=== PATIENT | female | born 1945 | race African-American/Black ===

== ENCOUNTER 2016-11-07 11:00 | Observation (INO) | payer OTHER ==
[2016-11-07 11:05] VITALS: TEMP 98.4; BMI 31.4
--- NOTE | 2016-11-07 11:47 | PDOC ---
History of Present Illness <Vinod Sun - Last Filed: 11/07/16 14:25> - General History Source: Patient Exam Limitations: No Limitations - History of Present Illness Initial Comments: 11/07/16 12:56 The patient is a 71 year old female with a significant past medical history of DM and HTN who was sent to the ED s/p mechanical fall since this AM. She states that she was running after her grandson as she stripped and fell forward impacting her right side of the body. Patient reports right sided rib discomfort , right hand pain and right knee pain. She denies any LOC or head trauma. She notes that she feels a twitching sensation at the right side of the chest/rib area. Patient notes that she was seen by Dr. Castellon today that sent her to [facility] for abnormal ECG. She denies any vision changes, lightheadedness, chest pain, SOB or headache. PCP: Dr. Castellon <Roxy Stewart - Last Filed: 11/07/16 15:20> - General Chief Complaint: Chest Pain Stated Complaint: FALL, CHEST PAIN Time Seen by Provider: 11/07/16 11:24 Past History - Past Medical History Diabetes: Yes HTN: Yes - Psycho/Social/Smoking Cessation Hx Suicidal Ideation: No Smoking History: Never smoked Hx Alcohol Use: No Drug/Substance Use Hx: No Substance Use Type: None <Vinod Sun - Last Filed: 11/07/16 14:25> <Roxy Stewart - Last Filed: 11/07/16 15:20> - Past Medical History Allergies/Adverse Reactions: Allergies Allergy/AdvReac Type Severity Reaction Status Date / Time aspirin AdvReac Verified 08/02/15 09:51 Home Medications: Ambulatory Orders Amlodipine Besylate 10 mg PO DAILY 11/07/16 Metformin HCl [Metformin HCl ER] 1,000 mg PO DAILY 11/07/16 Review of Systems - Review of Systems Constitutional: No: Chills, Fever Respiratory: No: Cough, Shortness of Breath Cardiac (ROS): No: Chest Pain, Edema Musculoskeletal: Yes: Joint Pain, Muscle Pain All Other Systems: Reviewed and Negative <Vinod Sun - Last Filed: 11/07/16 14:25> *Physical Exam - Vital Signs Last Vital Signs Temp Pulse Resp BP Pulse Ox 98.4 F 91 H 20 204/107 96 11/07/16 11:01 11/07/16 11:01 11/07/16 11:01 11/07/16 11:01 11/07/16 11:01 <Karl Sunfaele - Last Filed: 11/07/16 14:25> - Vital Signs Last Vital Signs Temp Pulse Resp BP Pulse Ox 98.4 F 85 18 180/83 96 11/07/16 11:01 11/07/16 12:03 11/07/16 11:47 11/07/16 11:47 11/07/16 12:03 - Physical Exam Comments: 11/07/16 12:57 GENERAL: Patient is alert and in no acute distress. Speech is clear and appropriate. HEAD: Atraumatic and nontender. HEENT: Pupils are equal round and reactive to light, extraocular movements are intact. The tympanic membranes are clear, no hemotympanum. No facial deformity/ tenderness, no septal hematoma. The oropharynx is clear. NECK: The trachea is midline, there is no stridor. There is no midline cervical spine tenderness, full range of motion of neck. CHEST: +Anterior rib 5, 6 and 7 tenderness, no notable swelling crepitus or bruising. no ecchymosis or abrasions. HEART: S1-S2, regular rate and rhythm. No murmurs. LUNGS: Clear to auscultation bilaterally. Symmetric chest rise. ABDOMEN: Soft/nontender/nondistended. Bowel sounds are normal. There is no abdominal or flank ecchymosis. BACK/PELVIS: There is no midline spine tenderness or step-off. Pelvis is stable and nontender. EXTREMITIES: +Extensor mechanism intact. There is no extremity deformity or joint swelling. No focal bony tenderness or deformity in the remaining joints or extremities. Throughout. 2+ distal pulses throughout. NEURO: Alert and oriented x3. Cranial nerves II through XII are intact. 5 out of 5 motor strength x4 extremities. Anlyde-qxtn-lwdahx is intact. No pronator drift. SKIN: +Superficial abrasion to the right palm x2 and thumb no focal bony deformity full ROM of joints, +Right knee no abrasions, No hematomas/ lacerations. PSYCH: Affect is appropriate. <Roxy Stewart - Last Filed: 11/07/16 15:20> Heart Score/ECG Review #1 ECG reviewed & interpreted by me at: 11:11 General ECG Interpretation: Sinus Rhythm, Normal Rate (89), Normal Intervals, No acute ischemic changes (T wave Inversions in 1 and aVL, V5 and V6. No acute ST changes.) Compared to previous ECG there are: Changes noted (compared to 07/19, V5-6 TWI are new) <Vinod Sun - Last Filed: 11/07/16 14:25> ED Treatment Course - LABORATORY CBC & Chemistry Diagram: 11/07/16 11:49 11/07/16 11:49 <Vinod Sun - Last Filed: 11/07/16 14:25> - LABORATORY CBC & Chemistry Diagram: 11/07/16 11:49 11/07/16 11:49 - ADDITIONAL ORDERS Additional order review: Laboratory Results 11/07/16 11/07/16 11:49 11:48 INR 0.98 Sodium 139 Potassium 5.0 Chloride 103 Carbon Dioxide 26 Anion Gap 10 BUN 14 D Creatinine 0.8 Creat Clearance w eGFR > 60 Random Glucose 348 H* D Calcium 8.5 Magnesium 1.7 L Total Bilirubin 0.3 D AST 26 D ALT 27 D Alkaline Phosphatase 78 Creatine Kinase 145 Troponin I < 0.02 Total Protein 7.0 Albumin 3.4 11/07/16 11:49 RBC 4.26 MCV 89.0 MCHC 32.1 RDW 13.6 MPV 9.7 Neutrophils % 66.5 D Lymphocytes % 23.4 D Monocytes % 7.7 Eosinophils % 1.6 Basophils % 0.8 - RADIOLOGY Radiology Studies Ordered: 11/07/16 14:27 EXAM: RAD/RIBS RIGHT SIDE Chest and right RIBS: Fall. Pain. An AP view the chest reveals clear lungs, sharp angles and intact bones and soft tissues. The mediastinum is not widened. Detailed views of the right ribs reveal no sign of blastic or lytic changes and no sign of fracture. A pneumothorax, pleural fluid or atelectasis is not seen. If symptoms persist, further imaging may be of help. Impression : No acute pathology appreciated. Reported By: Camilo Ramos MD 11/07/16 <Roxy Stewart - Last Filed: 11/07/16 15:20> Medical Decision Making - Medical Decision Making 11/07/16 12:52 A portion of this note was documented by scribe services under my direction. I have reviewed the details of the note, within reason, and agree with the documentation with the following case summary and management plan written by me. 71-year-old female with history of hypertension sent from Dr. Castellon's office for further evaluation in the setting of having EKG abnormalities in the setting of fall. Patient was in her usual state of health, tripped while running after her grandson and struck her right hand, right knee, and right chest on the ground. There was no head injury or loss of consciousness, she presented to him for evaluation of her injuries, and when EKG was performed there were new T wave inversions in the precordial leads so she was sent to the ED. She has no other cardiopulmonary complaints, explaining only positional right-sided rib discomfort. Vital signs normal. Exam as noted with abrasions to the right hand but no underlying bony deformity , no evidence of trauma or tenderness of the right knee, but some anterior right rib tenderness without crepitus or signs of pneumothorax. 71-year-old female with mechanical trip and fall, right-sided injury without head injury. Rule out rib fracture, at least has rib contusions. Rule out pneumothorax. Hand abrasions without evidence of underlying fracture. The fall was clearly mechanical, not in the setting of any lightheadedness or cardiopulmonary complaints. Expect that EKG changes are more likely subacute or chronic, will check labs and discuss disposition with Dr. Castellon. Labs, urinalysis Right rib series Reassess 11/07/16 14:23 Labs normal except for hyperglycemia, trop negative. CXR without fx/ptx. Accepted for obs tele by Dr. Castellon, requests consult with Dr. Hernandez. <Vinod Sun - Last Filed: 11/07/16 14:25> *DC/Admit/Observation/Transfer - Discharge Dispostion Admit: Yes <Vinod Sun - Last Filed: 11/07/16 14:25> - Attestations Scribe Attestion: 11/07/16 12:59 Documentation prepared by SARI Pate, acting as medical coding specialist for Vinod Sun MD. <Roxy Stewart - Last Filed: 11/07/16 15:20> Diagnosis at time of Disposition: EKG abnormalities Accidental fall Qualifiers: Encounter type: initial encounter Qualified Code(s): W19.XXXA - Unspecified fall, initial encounter Contusion of rib on right side Qualifiers: Encounter type: initial encounter Qualified Code(s): S20.211A - Contusion of right front wall of thorax, initial encounter - Referrals
[2016-11-07 12:22] LABS: BASOPHIL 0.8 % (0-2.0); EOSINOPHIL 1.6 % (0-4.5); MCH 28.6 pg (25.7-33.7); MCHC 32.1 g/dl (32.0-36.0); MEAN PLT VOLUME 9.7 fl (7.5-11.1); NEUTROPHILS 66.5 % (42.8-82.8); PLATELET COUNT 273 K/MM3 (134-434); RDW 13.6 % (11.6-15.6); WHITE BLOOD COUNT 9.8 K/mm3 (4.0-10.0)
[2016-11-07 12:38] LABS: INR 0.98 (0.82-1.09); PROTHROMBIN TIME (PATIENT) 10.8 SEC (9.98-11.88)
[2016-11-07 12:45] LABS: ALBUMIN 3.4 g/dl (3.4-5.0); ANION GAP 10 (8-16); BILIRUBIN,TOTAL 0.3 mg/dL (0.2-1.0); CALCIUM 8.5 mg/dL (8.5-10.1); CO2 26 mmol/L (21-32); CREATININE 0.8 mg/dL (0.55-1.02); SGPT/ALT 27 U/L (12-78)
[2016-11-07 12:47] LABS: ALK PHOS 78 U/L (45-117); TROPONIN I < 0.02 ng/ml (0.00-0.05)
[2016-11-07 12:49] LABS: MAGNESIUM 1.7 mg/dL (1.8-2.4); SGOT/AST 26 U/L (15-37)
[2016-11-07 12:55] LABS: GLUCOSE,RANDOM 348 mg/dL (74-106)
[2016-11-07] MEDS ORDERED: traMADol HCL 50 MG TABLET PO ONE (12:55)
[2016-11-07] MEDS ORDERED: traMADol HCL 50 MG TABLET ONE (13:02)
--- NOTE | 2016-11-07 13:27 | EKG ---
Test Reason : Blood Pressure : / mmHG Vent. Rate : 089 BPM Atrial Rate : 089 BPM P-R Int : 158 ms QRS Dur : 084 ms QT Int : 370 ms P-R-T Axes : 042 017 160 degrees QTc Int : 450 ms NORMAL SINUS RHYTHM MINIMAL VOLTAGE CRITERIA FOR LVH, MAY BE NORMAL VARIANT T WAVE ABNORMALITY, CONSIDER LATERAL ISCHEMIA ABNORMAL ECG WHEN COMPARED WITH ECG OF 06-JUL-2015 18:20, T WAVE INVERSION NOW EVIDENT IN LATERAL LEADS Confirmed by JORGE HOLDEN MD ([id number]) on 11/07/2016 1:27:18 PM Referred By: Confirmed By:JORGE HOLDEN MD
--- NOTE | 2016-11-07 15:44 | CON.CARD ---
Consult Consult Specialty:: Cardiology Referred by:: Dr. Castellon Reason for Consultation:: Chest pain post fall, ECG abnormalities - History of Present Illness Chief Complaint: Right sided chest pain after falling on chest earlier History of Present Illness: 71 yo female with HTN, DM type 2, who presents to ED after falling earlier this morning when she grabbed her grandson who was trying to run off and she subsequently fell on the right side of her chest with resulting right sided chest pain with palpation. Denies syncope. Patient was sent to ED by her PMD ( Dr. Castellon) for ECG abnormalities per ECG today compared to prior ECG in 2015. ECG demonstrated LVH with T wave abnormalities in I, aVL, and V5-6, which were new compared to prior 2015 ECG. Patient denies any exertional chest pain or dyspnea. Patient's BP was noted to be elevated in ED with SBP 180, but patient was also in pain from the fall. - History Source History Provided By: Patient Limitations to Obtaining History: No Limitations - Past Medical History Cardio/Vascular: Yes: HTN Musculoskeletal: Yes: Other (Left shoulder pain due to old rotator cuff injury?) Endocrine: Yes: Diabetes Mellitus - Past Surgical History Past Surgical History: Yes: None - Alcohol/Substance Use Hx Alcohol Use: No History of Substance Use: reports: None - Smoking History Smoking history: Never smoked Home Medications - Allergies Allergies/Adverse Reactions: Allergies Allergy/AdvReac Type Severity Reaction Status Date / Time aspirin AdvReac Verified 08/02/15 09:51 - Home Medications Home Medications: Ambulatory Orders Amlodipine Besylate 10 mg PO DAILY 11/07/16 Metformin HCl [Metformin HCl ER] 1,000 mg PO DAILY 11/07/16 Family Disease History - Family Disease History Family History: Denies (premature CAD or sudden cardiac ) Review of Systems - Review of Systems Constitutional: reports: No Symptoms Eyes: reports: No Symptoms HENT: reports: No Symptoms Vital Signs: Vital Signs Temperature 98.4 F 11/07/16 11:01 Pulse Rate 85 11/07/16 12:03 Respiratory Rate 18 11/07/16 11:47 Blood Pressure 180/83 11/07/16 11:47 O2 Sat by Pulse Oximetry (%) 96 11/07/16 12:03 - Other Data Labs, Other Data: INR, PTT INR 0.98 (0.82-1.09) 11/07/16 11:48 Imaging - Results X-ray: Report Reviewed (11/07/16 Ribs x-ray: No fractures, effusions.), Image Reviewed Assessment/Plan 71 yo female with HTN, DM type 2, who presents to ED after mechanical fall earlier this morning. Patient sent to ED with ECG abnormalities compared to prior ECG from 2015. ECG demonstrated LVH with T wave abnormalities in I, aVL, and V5-6. However, these T wave abnormalities are likely due to LVH. No suggestion per history to suggest ischemic heart disease. Right sided chest pain is clearly musculoskeletal. No clinical suspicion for ACS. No fractures per rib x-rays. Patient was noted to have elevated BP with SBP 180 in the ED, but patient was also in pain from the fall. RECS: In my opinion, patient does not require any further inpatient cardiac evaluation. If patient has not had an echocardiogram in the past year, would recommend outpatient echocardiogram. No need for stress testing at this time given absence of symptoms to suggest ischemic heart disease. Will continue patient's amlodipine 10 mg po daily. Will add ramipril 5 mg po daily to regimen for better BP control and uptitrate as needed. Will defer decision to admit patient for observation to primary care physician ( Dr. Castellon). However, patient can be discharged from cardiac standpoint with close outpatient BP follow-up. Please call with questions. Will see prn.
[2016-11-07] MEDS ORDERED: RAMIPRIL 5 MG CAPSULE (FP) PO SCH ×2 (15:45→17:30)
[2016-11-07] MEDS ORDERED: RAMIPRIL 5 MG CAPSULE (FP) ONE (15:56)
--- NOTE | 2016-11-07 17:26 | HP ---
Admitting History and Physical - Primary Care Physician PCP: Agus Castellon - Admission Chief Complaint: ekg changes at office/fall History of Present Illness: The patient is a 71 year old female with a significant past medical history of DM and HTN who was sent to the ED s/p mechanical fall since this AM. She states that she was running after her grandson as she stripped and fell forward impacting her right side of the body. Patient reports right sided rib discomfort , right hand pain and right knee pain. She denies any LOC or head trauma. She notes that she feels a twitching sensation at the right side of the chest/rib area. Patient notes that she was seen by Dr. Castellon today that sent her to [facility] for abnormal ECG. She denies any vision changes, lightheadedness, chest pain, SOB or headache. History Source: Patient Limitations to Obtaining History: No Limitations - Past Medical History Cardiovascular: Yes: HTN Musculoskeletal: Yes: Other (Left shoulder pain due to old rotator cuff injury?) Endocrine: Yes: Diabetes Mellitus - Past Surgical History Past Surgical History: Yes: None - Smoking History Smoking history: Never smoked - Alcohol/Substance Use Hx Alcohol Use: No History of Substance Use: reports: None Home Medications - Allergies Allergies/Adverse Reactions: Allergies Allergy/AdvReac Type Severity Reaction Status Date / Time aspirin AdvReac Verified 08/02/15 09:51 - Home Medications Home Medications: Ambulatory Orders Amlodipine Besylate 10 mg PO DAILY 11/07/16 Metformin HCl [Metformin HCl ER] 1,000 mg PO DAILY 11/07/16 Review of Systems - Review of Systems Constitutional: reports: No Symptoms Eyes: reports: No Symptoms HENT: reports: No Symptoms Neck: reports: No Symptoms Cardiovascular: reports: No Symptoms Respiratory: reports: No Symptoms Gastrointestinal: reports: No Symptoms Genitourinary: reports: No Symptoms Musculoskeletal: reports: Joint Pain Integumentary: reports: Rash, Wound Neurological: reports: No Symptoms Endocrine: reports: No Symptoms Physical Examination Vital Signs: Vital Signs Temperature 98.4 F 11/07/16 11:01 Pulse Rate 85 11/07/16 12:03 Respiratory Rate 18 11/07/16 11:47 Blood Pressure 180/83 11/07/16 11:47 O2 Sat by Pulse Oximetry (%) 96 11/07/16 12:03 Constitutional: Yes: Mild Distress Eyes: Yes: WNL HENT: Yes: WNL Neck: Yes: WNL Cardiovascular: Yes: Pulse Irregular Respiratory: Yes: WNL Gastrointestinal: Yes: WNL Renal/: Yes: WNL Musculoskeletal: Yes: WNL Edema: No Peripheral Pulses WNL: Yes Integumentary: Yes: WNL Neurological: Yes: WNL ...Motor Strength: WNL Psychiatric: Yes: WNL Problem List - Problems (1) Accidental fall Code(s): W19.XXXA - UNSPECIFIED FALL, INITIAL ENCOUNTER Qualifiers: Encounter type: initial encounter Qualified Code(s): W19.XXXA - Unspecified fall, initial encounter (2) Contusion of rib on right side Code(s): S20.211A - CONTUSION OF RIGHT FRONT WALL OF THORAX, INITIAL ENCOUNTER Qualifiers: Encounter type: initial encounter Qualified Code(s): S20.211A - Contusion of right front wall of thorax, initial encounter (3) EKG abnormalities Code(s): R94.31 - ABNORMAL ELECTROCARDIOGRAM [ECG] [EKG] (4) Hypertension Code(s): I10 - ESSENTIAL (PRIMARY) HYPERTENSION Qualifiers: Hypertension type: essential hypertension Qualified Code(s): I10 - Essential (primary) hypertension Assessment/Plan cardiology eval xrays ribs telemetery monitoring observation
--- NOTE | 2016-11-07 17:30 | DS ---
Physical Examination Vital Signs: Vital Signs Temperature 98.4 F 11/07/16 11:01 Pulse Rate 85 11/07/16 12:03 Respiratory Rate 18 11/07/16 11:47 Blood Pressure 180/83 11/07/16 11:47 O2 Sat by Pulse Oximetry (%) 96 11/07/16 12:03 Findings/Remarks: see hnp Constitutional: Yes: No Distress Discharge Summary Reason For Visit: ABNORMAL EKG Current Active Problems Accidental fall (Acute) Contusion of rib on right side (Acute) EKG abnormalities (Acute) Procedures: Principal: XRAYS Other Procedures: CARDIAC MONITORING Hospital Course: ADMITEED OBSERVATION/CARDIAC F/U, XRAYS NEG, MEDICALLY CLEARED BY CARDIOLOGY, F/ U OUTPATIENT Condition: Good - Instructions Diet, Activity, Other Instructions: ADA/LOW SODIUM Referrals: Agus Castellon MD [Primary Care Provider] - Disposition: HOME - Home Medications Comprehensive Discharge Medication List: Ambulatory Orders Amlodipine Besylate 10 mg PO DAILY 11/07/16 Amlodipine Besylate [Norvasc -] 10 mg PO DAILY #0 tablet 11/07/16 Metformin HCl [Metformin HCl ER] 1,000 mg PO DAILY 11/07/16 Ramipril [Altace] 5 mg PO DAILY #30 tab 11/07/16
[2016-11-07] MEDS ORDERED: BACITRACIN 0.9 GM PACKET ONE (17:48)
[2016-11-07 18:00] VITALS: BP 175/65; PULSE 75
[2016-11-08] MEDS ORDERED: amLODIPine BESYLATE 10 MG TABLET (FP) PO SCH (10:00)
== END 2016-11-07 18:03 | disposition home or self-care (01) ==
LOC: JER 11:00 → JERBED 14:26
PROVIDERS: ADMIT Family Medicine; ATTEND Family Medicine
DX: R94.31 Abnormal electrocardiogram [ECG] [EKG] (principal); S20.211A Contusion of right front wall of thorax, initial encounter; S60.511A Abrasion of right hand, initial encounter; W01.0XXA Fall on same level from slipping, tripping and stumbling without subsequent striking against object, initial encounter; Y93.02 Activity, running; Y92.89 Other specified places as the place of occurrence of the external cause; I10 Essential (primary) hypertension; E11.9 Type 2 diabetes mellitus without complications
CPT/HCPCS: 36415; 71101-TC-RT; 80053; 82550; 83735; 84484; 85025; 85610; 86850; 86900; 86901; 93005; 93010; 99285-25; G0378

== ENCOUNTER 2023-04-08 16:38 | Inpatient (IN) | payer OTHER ==
[2023-04-08] MEDS ORDERED: ONDANSETRON 4 MG/2 ML VIAL IM ONE (17:47)
[2023-04-08] MEDS ORDERED: SODIUM CHLORIDE 0.9% 500 ML INFUS.BAG IV ONE (17:47)
[2023-04-08] MEDS ORDERED: FAMOTIDINE 20 MG/50 ML IVPB 20 MG/50 ML MG IVPB ONE ×2 (17:47→18:07)
[2023-04-08] MEDS ORDERED: ACETAMINOPHEN 1000 MG/100 ML BAG IVPB ONE (17:47)
[2023-04-08 18:09] LABS: BASO % 0.7 % (0-2.0); EOS % 1.5 % (0-4.5); HEMATOCRIT 35.6 % (32.4-45.2); HEMOGLOBIN 11.3 GM/dL (10.7-15.3); LYMPH % 9.3 % (8-40); MCH 26.5 pg (25.7-33.7); MCHC 31.9 g/dl (32.0-36.0); MEAN PLT VOLUME 8.8 fl (7.5-11.1); MONO % 9.6 % (3.8-10.2); NEUT % 78.9 % (42.8-82.8); PLATELET COUNT 299 10^3/uL (134-434); RBC 4.28 M/mm3 (3.60-5.2); WHITE BLOOD COUNT 13.1 K/mm3 (4.0-10.0)
[2023-04-08] MEDS ORDERED: ACETAMINOPHEN INJECTION 100 ML IVPB ONE (18:15)
[2023-04-08] MEDS ORDERED: ONDANSETRON 4 MG/2 ML VIAL ONE (18:16)
[2023-04-08 18:34] LABS: POTASSIUM 5.1 mmol/L (3.5-5.1)
[2023-04-08 18:36] LABS: CALCIUM 9.5 mg/dL (8.5-10.1)
[2023-04-08 18:37] LABS: ALBUMIN 3.1 g/dl (3.4-5.0); BLOOD UREA NITROGEN 23.8 mg/dL (7-18); MAGNESIUM 1.8 mg/dL (1.8-2.4)
[2023-04-08] MEDS ORDERED: AZITHROMYCIN IVPB 500 MG in DEXTROSE 5%-WATER - 250 ML IVPB ONE (18:38)
[2023-04-08 18:40] LABS: CREATININE 1.4 mg/dL (0.55-1.3)
[2023-04-08 18:41] LABS: BILIRUBIN,TOTAL 0.4 mg/dL (0.2-1)
[2023-04-08 19:05] LABS: INR 1.12 (0.83-1.09)
[2023-04-08 19:08] LABS: ACTIVATED PTT 33.2 SECONDS (25.2-36.5)
[2023-04-08] MEDS ORDERED: CEFTRIAXONE 1 GM/50 ML BAG ONE (20:01)
[2023-04-08] MEDS ORDERED: AZITHROMYCIN IVPB 500 MG/250 ML BAG IVPB ONE (20:01)
[2023-04-08] MEDS ORDERED: DOCUSATE SODIUM 100 MG CAPSULE (FP) PO PRN (21:40)
[2023-04-08] MEDS ORDERED: SODIUM CHLORIDE 1,000 ML IV SCH (21:45)
[2023-04-08] MEDS: INSULIN SLIDING SCALE (NOVOLOG) 1 VIAL SQ SCH (22:27)
[2023-04-08 23:45] LABS: POTASSIUM 4.6 mmol/L (3.5-5.1)
[2023-04-08 23:46] LABS: CALCIUM 8.9 mg/dL (8.5-10.1)
[2023-04-08 23:47] LABS: BLOOD UREA NITROGEN 22.5 mg/dL (7-18); MAGNESIUM 1.6 mg/dL (1.8-2.4)
[2023-04-08 23:50] LABS: CREATININE 1.3 mg/dL (0.55-1.3); PHOSPHOROUS 3.5 mg/dL (2.5-4.9)
[2023-04-09] MEDS ORDERED: ONDANSETRON 4 MG/2 ML VIAL IVPUSH PRN
[2023-04-09] MEDS ORDERED: ACETAMINOPHEN 1000 MG/100 ML BAG IVPB PRN
[2023-04-09] MEDS: CARVEDILOL 25 MG TABLET (FP) PO SCH ×3 (05:00→21:01)
[2023-04-09] MEDS: INSULIN SLIDING SCALE (NOVOLOG) 1 VIAL SQ SCH ×4 (06:00→22:11)
[2023-04-09] MEDS: GABAPENTIN 100 MG CAPSULE PO SCH (06:01)
[2023-04-09] MEDS: LOSARTAN POTASSIUM 50 MG TABLET PO SCH (09:36)
[2023-04-09] MEDS: ACETAMINOPHEN 325 MG TABLET (FP) PO PRN ×2 (09:36→17:36)
[2023-04-09] MEDS: AZITHROMYCIN IVPB 500 MG/250 ML BAG IVPB SCH (09:36)
[2023-04-09] MEDS: CEFTRIAXONE 1 GM in DEXTROSE 5%-WATER - 50 ML IVPB SCH (09:36)
[2023-04-09 10:01] LABS: BASO % 0.4 % (0-2.0); EOS % 0.5 % (0-4.5); HEMATOCRIT 32.4 % (32.4-45.2); HEMOGLOBIN 10.3 GM/dL (10.7-15.3); LYMPH % 9.9 % (8-40); MCH 26.2 pg (25.7-33.7); MCHC 31.7 g/dl (32.0-36.0); MEAN CELL VOLUME 82.7 fl (80-96); MEAN PLT VOLUME 9.4 fl (7.5-11.1); MONO % 9.2 % (3.8-10.2); PLATELET COUNT 295 10^3/uL (134-434); RBC 3.92 M/mm3 (3.60-5.2); RDW 14.9 % (11.6-15.6); WHITE BLOOD COUNT 12.5 K/mm3 (4.0-10.0)
[2023-04-09 10:04] LABS: POTASSIUM 4.8 mmol/L (3.5-5.1)
[2023-04-09 10:05] LABS: CALCIUM 9.1 mg/dL (8.5-10.1)
[2023-04-09 10:06] LABS: BLOOD UREA NITROGEN 18.4 mg/dL (7-18)
[2023-04-09 10:09] LABS: CREATININE 1.1 mg/dL (0.55-1.3)
[2023-04-09 10:35] LABS: MAGNESIUM 1.7 mg/dL (1.8-2.4)
[2023-04-09] MEDS ORDERED: MAGNESIUM 2GM/50ML STERILE WATER IVPB IVPB ONE ×2 (11:00→16:30)
[2023-04-09] MEDS: DEXTROSE 5%-LACTATED RINGERS 1,000 ML IV SCH (15:41)
[2023-04-09] MEDS ORDERED: hydrALAZINE HCL 10 MG TABLET PO ONE (20:34)
[2023-04-09] MEDS ORDERED: KETOROLAC TROMETHAMINE 15 MG/ML VIAL IM ONE (20:35)
[2023-04-09] MEDS: GABAPENTIN 300 MG CAPSULE PO SCH (21:01)
[2023-04-09] MEDS: POLYETHYLENE GLYCOL (HEALTHYLAX) 3350 17 GM PACKET PO SCH (22:12)
[2023-04-10] MEDS: INSULIN SLIDING SCALE (NOVOLOG) 1 VIAL SQ SCH ×4 (06:24→21:41)
[2023-04-10] MEDS: GABAPENTIN 100 MG CAPSULE PO SCH (06:24)
[2023-04-10] MEDS: AZITHROMYCIN IVPB 500 MG/250 ML BAG IVPB SCH (09:45)
[2023-04-10] MEDS: LOSARTAN POTASSIUM 50 MG TABLET PO SCH (09:47)
[2023-04-10] MEDS: CEFTRIAXONE 1 GM in DEXTROSE 5%-WATER - 50 ML IVPB SCH (09:47)
[2023-04-10] MEDS: CARVEDILOL 25 MG TABLET (FP) PO SCH ×2 (09:48→21:41)
[2023-04-10] MEDS: POLYETHYLENE GLYCOL (HEALTHYLAX) 3350 17 GM PACKET PO SCH ×2 (09:48→21:40)
[2023-04-10 10:27] LABS: EOS % 1.2 % (0-4.5); HEMATOCRIT 30.6 % (32.4-45.2); HEMOGLOBIN 9.9 GM/dL (10.7-15.3); LYMPH % 10.4 % (8-40); MCH 26.6 pg (25.7-33.7); MCHC 32.4 g/dl (32.0-36.0); MEAN CELL VOLUME 82.2 fl (80-96); MEAN PLT VOLUME 9.3 fl (7.5-11.1); MONO % 10.8 % (3.8-10.2); PLATELET COUNT 274 10^3/uL (134-434); RBC 3.72 M/mm3 (3.60-5.2); RDW 14.8 % (11.6-15.6); WHITE BLOOD COUNT 12.7 K/mm3 (4.0-10.0)
[2023-04-10 10:28] LABS: BASO % 0.6 % (0-2.0)
[2023-04-10 10:32] LABS: INR 1.27 (0.83-1.09); PROTHROMBIN TIME (PATIENT) 14.7 SEC (9.7-13.0)
[2023-04-10 10:48] LABS: POTASSIUM 4.1 mmol/L (3.5-5.1)
[2023-04-10 10:53] LABS: CALCIUM 8.6 mg/dL (8.5-10.1)
[2023-04-10 10:54] LABS: BLOOD UREA NITROGEN 12.3 mg/dL (7-18)
[2023-04-10 10:57] LABS: CREATININE 1.1 mg/dL (0.55-1.3)
[2023-04-10] MEDS ORDERED: LOSARTAN POTASSIUM 50 MG TABLET PO SCH (10:58)
[2023-04-10 10:59] LABS: BILIRUBIN,TOTAL 0.5 mg/dL (0.2-1); TOT PROT 6.1 g/dl (6.4-8.2)
[2023-04-10 11:04] LABS: ALBUMIN 2.5 g/dl (3.4-5.0)
[2023-04-10] MEDS ORDERED: LOSARTAN POTASSIUM 25 MG TABLET PO ONE (11:15)
[2023-04-10] MEDS: DEXTROSE 5%-LACTATED RINGERS 1,000 ML IV SCH (13:09)
[2023-04-10] MEDS: GABAPENTIN 300 MG CAPSULE PO SCH (21:41)
[2023-04-11] MEDS: GABAPENTIN 100 MG CAPSULE PO SCH (06:01)
[2023-04-11] MEDS: INSULIN SLIDING SCALE (NOVOLOG) 1 VIAL SQ SCH ×3 (06:02→23:00)
[2023-04-11] MEDS: ACETAMINOPHEN 325 MG TABLET (FP) PO PRN (06:25)
[2023-04-11] MEDS: POLYETHYLENE GLYCOL (HEALTHYLAX) 3350 17 GM PACKET PO SCH ×3 (09:43→22:05)
[2023-04-11] MEDS: CARVEDILOL 25 MG TABLET (FP) PO SCH ×2 (09:43→22:20)
[2023-04-11] MEDS: CEFTRIAXONE 1 GM in DEXTROSE 5%-WATER - 50 ML IVPB SCH (09:43)
[2023-04-11] MEDS ORDERED: LOSARTAN POTASSIUM 50 MG, LOSARTAN POTASSIUM 25 MG PO SCH (10:00)
[2023-04-11] MEDS: AZITHROMYCIN IVPB 500 MG/250 ML BAG IVPB SCH (11:08)
[2023-04-11] MEDS ORDERED: ROCURONIUM BROMIDE 50 MG/5 ML SYRINGE ONE (15:06)
[2023-04-11] MEDS ORDERED: PROPOFOL 20 ML ONE (15:06)
[2023-04-11] MEDS ORDERED: INDOCYANINE GREEN 25 MG/10 ML VIAL IVPUSH ONE (15:47)
[2023-04-11] MEDS ORDERED: BUPIVACAINE HCL/PF 0.25% (2.5MG/ML) 10 ML VIAL IJ ONE ×4 (15:54)
[2023-04-11] MEDS ORDERED: cefTRIAXone SODIUM 1 GM VIAL ONE (16:11)
[2023-04-11] MEDS ORDERED: SODIUM CHLORIDE 0.9% P/F 10 ML VIAL IJ ONE (16:36)
[2023-04-11] MEDS ORDERED: HYDROmorphone HCl 2 MG/ML VIAL ONE (16:36)
[2023-04-11] MEDS ORDERED: SUGAMMADEX SODIUM 200 MG/2 ML VIAL ONE (16:41)
[2023-04-11] MEDS ORDERED: ACETAMINOPHEN INJECTION 100 ML IVPB ONE (16:48)
[2023-04-11] MEDS ORDERED: SEVOFLURANE 250 ML BTL ONE (16:51)
[2023-04-11] MEDS ORDERED: LABETALOL HCL 20 MG/4 ML VIAL ONE (17:10)
[2023-04-11] MEDS ORDERED: ONDANSETRON 4 MG/2 ML VIAL IVPUSH PRN (17:34)
[2023-04-11] MEDS ORDERED: DEXTROSE 5%-LACTATED RINGERS 1,000 ML IV SCH (17:58)
[2023-04-11] MEDS ORDERED: ONDANSETRON 4 MG/2 ML VIAL ONE (18:31)
[2023-04-11] MEDS ORDERED: hydrALAZINE HCL 20 MG/ML VIAL IVPUSH ONE ×2 (18:38→18:43)
[2023-04-11] MEDS: traMADol HCL 50 MG TABLET PO PRN (22:19)
[2023-04-11] MEDS: GABAPENTIN 300 MG CAPSULE PO SCH (22:19)
[2023-04-12] MEDS: SODIUM CHLORIDE 1,000 ML IV SCH ×2 (00:17→22:35)
[2023-04-12] MEDS: ACETAMINOPHEN 325 MG TABLET (FP) PO PRN ×2 (01:06→06:38)
[2023-04-12] MEDS: GABAPENTIN 100 MG CAPSULE PO SCH (06:39)
[2023-04-12] MEDS: INSULIN SLIDING SCALE (NOVOLOG) 1 VIAL SQ SCH ×5 (06:55→22:34)
[2023-04-12] MEDS: traMADol HCL 50 MG TABLET PO PRN (08:40)
[2023-04-12] MEDS: LOSARTAN POTASSIUM 50 MG, LOSARTAN POTASSIUM 25 MG PO SCH (09:26)
[2023-04-12] MEDS: CARVEDILOL 25 MG TABLET (FP) PO SCH ×2 (09:27→22:13)
[2023-04-12] MEDS: POLYETHYLENE GLYCOL (HEALTHYLAX) 3350 17 GM PACKET PO SCH ×2 (09:28→22:13)
[2023-04-12] MEDS: CEFTRIAXONE 1 GM in DEXTROSE 5%-WATER - 50 ML IVPB SCH (09:28)
[2023-04-12 10:58] LABS: BASO % 0.2 % (0-2.0); EOS % 0.1 % (0-4.5); HEMATOCRIT 31.2 % (32.4-45.2); LYMPH % 5.5 % (8-40); MCH 26.5 pg (25.7-33.7); MCHC 32.1 g/dl (32.0-36.0); MEAN CELL VOLUME 82.4 fl (80-96); MEAN PLT VOLUME 9.4 fl (7.5-11.1); MONO % 10.5 % (3.8-10.2); NEUT % 83.7 % (42.8-82.8); PLATELET COUNT 311 10^3/uL (134-434); RBC 3.79 M/mm3 (3.60-5.2); RDW 14.8 % (11.6-15.6); WHITE BLOOD COUNT 11.5 K/mm3 (4.0-10.0)
[2023-04-12 11:28] LABS: POTASSIUM 4.4 mmol/L (3.5-5.1)
[2023-04-12 11:46] LABS: CALCIUM 8.4 mg/dL (8.5-10.1)
[2023-04-12 11:47] LABS: ALBUMIN 2.4 g/dl (3.4-5.0); BLOOD UREA NITROGEN 12.2 mg/dL (7-18)
[2023-04-12 11:52] LABS: BILIRUBIN,TOTAL 0.6 mg/dL (0.2-1); TOT PROT 6.2 g/dl (6.4-8.2)
[2023-04-12] MEDS: GABAPENTIN 300 MG CAPSULE PO SCH (22:13)
[2023-04-13] MEDS: INSULIN SLIDING SCALE (NOVOLOG) 1 VIAL SQ SCH ×4 (06:43→22:20)
[2023-04-13] MEDS: SODIUM CHLORIDE 1,000 ML IV SCH ×2 (06:57→22:15)
[2023-04-13] MEDS: GABAPENTIN 100 MG CAPSULE PO SCH (06:57)
[2023-04-13 09:24] LABS: BASO % 0.3 % (0-2.0); EOS % 1.4 % (0-4.5); HEMATOCRIT 27.3 % (32.4-45.2); HEMOGLOBIN 8.9 GM/dL (10.7-15.3); LYMPH % 9.3 % (8-40); MCH 26.7 pg (25.7-33.7); MCHC 32.6 g/dl (32.0-36.0); MEAN PLT VOLUME 8.8 fl (7.5-11.1); MONO % 11.4 % (3.8-10.2); NEUT % 77.6 % (42.8-82.8); PLATELET COUNT 272 10^3/uL (134-434); RBC 3.33 M/mm3 (3.60-5.2); RDW 15.3 % (11.6-15.6); WHITE BLOOD COUNT 10.4 K/mm3 (4.0-10.0)
[2023-04-13] MEDS: CARVEDILOL 25 MG TABLET (FP) PO SCH ×2 (10:18→22:19)
[2023-04-13] MEDS: LOSARTAN POTASSIUM 50 MG, LOSARTAN POTASSIUM 25 MG PO SCH (10:19)
[2023-04-13] MEDS: POLYETHYLENE GLYCOL (HEALTHYLAX) 3350 17 GM PACKET PO SCH ×2 (10:19→22:20)
[2023-04-13] MEDS: CEFTRIAXONE 1 GM in DEXTROSE 5%-WATER - 50 ML IVPB SCH (11:17)
[2023-04-13] MEDS: GABAPENTIN 300 MG CAPSULE PO SCH (22:19)
[2023-04-14] MEDS: GABAPENTIN 100 MG CAPSULE PO SCH (06:20)
[2023-04-14] MEDS: INSULIN SLIDING SCALE (NOVOLOG) 1 VIAL SQ SCH ×4 (06:21→22:24)
[2023-04-14 09:44] LABS: BASO % 0.5 % (0-2.0); EOS % 2.5 % (0-4.5); HEMATOCRIT 28.8 % (32.4-45.2); HEMOGLOBIN 9.3 GM/dL (10.7-15.3); LYMPH % 12.8 % (8-40); MCH 26.8 pg (25.7-33.7); MCHC 32.4 g/dl (32.0-36.0); MEAN CELL VOLUME 82.7 fl (80-96); MONO % 11.3 % (3.8-10.2); NEUT % 72.9 % (42.8-82.8); PLATELET COUNT 312 10^3/uL (134-434); RBC 3.48 M/mm3 (3.60-5.2); WHITE BLOOD COUNT 10.4 K/mm3 (4.0-10.0)
[2023-04-14] MEDS: LOSARTAN POTASSIUM 50 MG, LOSARTAN POTASSIUM 25 MG PO SCH (10:03)
[2023-04-14] MEDS: CARVEDILOL 25 MG TABLET (FP) PO SCH ×2 (10:03→22:05)
[2023-04-14] MEDS: POLYETHYLENE GLYCOL (HEALTHYLAX) 3350 17 GM PACKET PO SCH ×2 (11:09→22:06)
[2023-04-14] MEDS: DOCUSATE SODIUM 100 MG CAPSULE (FP) PO SCH ×2 (11:09→22:05)
[2023-04-14] MEDS: CEFTRIAXONE 1 GM in DEXTROSE 5%-WATER - 50 ML IVPB SCH (11:09)
[2023-04-14] MEDS: GABAPENTIN 300 MG CAPSULE PO SCH (22:06)
[2023-04-14] MEDS: SODIUM CHLORIDE 1,000 ML IV SCH (22:23)
[2023-04-15] MEDS: GABAPENTIN 100 MG CAPSULE PO SCH (06:04)
[2023-04-15] MEDS: INSULIN SLIDING SCALE (NOVOLOG) 1 VIAL SQ SCH ×4 (06:04→21:44)
[2023-04-15] MEDS ORDERED: CARVEDILOL 25 MG TABLET (FP) PO ONE (06:50)
[2023-04-15] MEDS ORDERED: IRON SUCROSE INJECTION 200 MG in SODIUM CHLORIDE 90 ML IVPB ONE (09:00)
[2023-04-15] MEDS: POLYETHYLENE GLYCOL (HEALTHYLAX) 3350 17 GM PACKET PO SCH ×2 (10:02→21:44)
[2023-04-15] MEDS: CARVEDILOL 25 MG TABLET (FP) PO SCH ×2 (10:02→21:43)
[2023-04-15] MEDS: DOCUSATE SODIUM 100 MG CAPSULE (FP) PO SCH ×2 (10:02→21:43)
[2023-04-15] MEDS: LOSARTAN POTASSIUM 50 MG, LOSARTAN POTASSIUM 25 MG PO SCH (10:03)
[2023-04-15] MEDS: ACETAMINOPHEN 325 MG TABLET (FP) PO PRN ×2 (10:55→21:43)
[2023-04-15] MEDS: CEFTRIAXONE 1 GM in DEXTROSE 5%-WATER - 50 ML IVPB SCH (12:57)
[2023-04-15 15:21] VITALS: BMI 30.2
[2023-04-15] MEDS: GABAPENTIN 300 MG CAPSULE PO SCH (21:43)
[2023-04-16] MEDS: GABAPENTIN 100 MG CAPSULE PO SCH (06:01)
[2023-04-16] MEDS: INSULIN SLIDING SCALE (NOVOLOG) 1 VIAL SQ SCH ×2 (06:02→12:40)
[2023-04-16] MEDS: POLYETHYLENE GLYCOL (HEALTHYLAX) 3350 17 GM PACKET PO SCH ×3 (07:55→10:37)
[2023-04-16] MEDS: CEFTRIAXONE 1 GM in DEXTROSE 5%-WATER - 50 ML IVPB SCH (10:08)
[2023-04-16] MEDS: DOCUSATE SODIUM 100 MG CAPSULE (FP) PO SCH (10:09)
[2023-04-16] MEDS: CARVEDILOL 25 MG TABLET (FP) PO SCH (10:09)
[2023-04-16] MEDS: LOSARTAN POTASSIUM 50 MG, LOSARTAN POTASSIUM 25 MG PO SCH (10:10)
[2023-04-16 11:05] LABS: POTASSIUM 4.4 mmol/L (3.5-5.1)
[2023-04-16 11:09] LABS: ALBUMIN 2.2 g/dl (3.4-5.0); CALCIUM 8.8 mg/dL (8.5-10.1)
[2023-04-16 11:10] LABS: BLOOD UREA NITROGEN 8.2 mg/dL (7-18)
[2023-04-16 11:12] LABS: CREATININE 0.9 mg/dL (0.55-1.3)
[2023-04-16 11:14] LABS: BILIRUBIN,TOTAL 0.2 mg/dL (0.2-1); TOT PROT 6.1 g/dl (6.4-8.2)
[2023-04-16] MEDS ORDERED: IRON SUCROSE INJECTION 200 MG in SODIUM CHLORIDE 90 ML IVPB ONE (12:00)
[2023-04-16] MEDS: ACETAMINOPHEN 325 MG TABLET (FP) PO PRN (12:59)
[2023-04-16 15:51] VITALS: BP 128/86; PULSE 79; RESP 17; TEMP 99.1
== END 2023-04-16 16:42 | disposition home or self-care (01) | DRG 263 ==
LOC: JER 16:38 → JERBED 20:39 → J5S 23:50 → OBSVTOIN 04-10 10:50
PROVIDERS: ADMIT Internal Medicine; ATTEND Family Medicine
PROC: 0FT44ZZ Resection of Gallbladder, Percutaneous Endoscopic Approach (ICD-10-PCS; principal; 2023-04-11 15:25)
DX: K80.00 Calculus of gallbladder with acute cholecystitis without obstruction (principal); I10 Essential (primary) hypertension; E78.5 Hyperlipidemia, unspecified; E11.9 Type 2 diabetes mellitus without complications; J98.11 Atelectasis; E87.5 Hyperkalemia; N17.9 Acute kidney failure, unspecified; K59.00 Constipation, unspecified; M81.0 Age-related osteoporosis without current pathological fracture; R91.1 Solitary pulmonary nodule; R50.9 Fever, unspecified; D72.829 Elevated white blood cell count, unspecified; E87.0 Hyperosmolality and hypernatremia; R11.10 Vomiting, unspecified; J18.9 Pneumonia, unspecified organism
CPT/HCPCS: 0241U-QW; 36415; 71045-TC-FY; 71250-TC; 74176-TC; 76705-TC; 76775-TC; 78226-TC; 80048; 80053; 82728; 82962; 83540; 83550; 83690; 83735; 84100; 84484; 85025; 85610; 85730; 86850; 86900; 86901; 87040; 87070; 87186; 87205; 88304-TC; 93005; 93010; 94010; 94760; 97116-GP; 97162-GP; 99285-25; A9537; G0378; J1756

== ENCOUNTER 2023-07-16 11:46 | Emergency (ER) | payer OTHER ==
[2023-07-16 11:56] VITALS: BMI 32.2
[2023-07-16 15:08] LABS: EOS % 2.9 % (0-4.5); HEMATOCRIT 30.5 % (32.4-45.2); HEMOGLOBIN 9.8 GM/dL (10.7-15.3); LYMPH % 21.3 % (8-40); MCH 27.1 pg (25.7-33.7); MCHC 32.3 g/dl (32.0-36.0); MEAN CELL VOLUME 83.9 fl (80-96); MEAN PLT VOLUME 9.6 fl (7.5-11.1); MONO % 8.9 % (3.8-10.2); NEUT % 65.9 % (42.8-82.8); PLATELET COUNT 255 10^3/uL (134-434); RBC 3.64 M/mm3 (3.60-5.2); RDW 15.9 % (11.6-15.6); WHITE BLOOD COUNT 8.6 K/mm3 (4.0-10.0)
[2023-07-16 15:35] LABS: POTASSIUM 4.9 mmol/L (3.5-5.1)
[2023-07-16 15:37] LABS: ALBUMIN 2.7 g/dl (3.4-5.0); BLOOD UREA NITROGEN 14.1 mg/dL (7-18)
[2023-07-16 15:41] LABS: BILIRUBIN,TOTAL 0.3 mg/dL (0.2-1); TOT PROT 6.7 g/dl (6.4-8.2)
[2023-07-16 15:44] LABS: LACTIC ACID 3.8 mmol/L (0.4-2.0)
[2023-07-16 16:35] VITALS: RESP 18
[2023-07-16] MEDS ORDERED: SODIUM CHLORIDE 0.9% 500 ML INFUS.BAG IV ONE (17:07)
[2023-07-16 20:55] LABS: LACTIC ACID 2.4 mmol/L (0.4-2.0)
[2023-07-16 21:13] VITALS: BP 229/88; PULSE 86; TEMP 98.1
== END 2023-07-16 21:27 | disposition home or self-care (01) ==
LOC: JER 11:46
DX: M79.641 Pain in right hand (principal); M79.642 Pain in left hand; R22.43 Localized swelling, mass and lump, lower limb, bilateral; R20.2 Paresthesia of skin
CPT/HCPCS: 36415; 73130-TC-LT-FY; 73130-TC-RT-FY; 80053; 83605; 85025; 93005; 93010; 93970-TC; 99285-25

== ENCOUNTER 2023-07-21 09:50 | Emergency (ER) | payer OTHER ==
[2023-07-21 09:55] VITALS: BMI 33.0
[2023-07-21] MEDS ORDERED: KETOROLAC TROMETHAMINE 30 MG/1 ML VIAL IM ONE (11:05)
[2023-07-21] MEDS ORDERED: KETOROLAC TROMETHAMINE 30 MG/1 ML VIAL ONE (11:39)
[2023-07-21 11:53] LABS: BASO % 0.8 % (0-2.0); EOS % 1.4 % (0-4.5); HEMATOCRIT 34.7 % (32.4-45.2); HEMOGLOBIN 10.8 GM/dL (10.7-15.3); LYMPH % 14.9 % (8-40); MCH 26.1 pg (25.7-33.7); MCHC 31.2 g/dl (32.0-36.0); MEAN CELL VOLUME 83.7 fl (80-96); MEAN PLT VOLUME 8.4 fl (7.5-11.1); MONO % 9.9 % (3.8-10.2); PLATELET COUNT 365 10^3/uL (134-434); RBC 4.15 M/mm3 (3.60-5.2); RDW 15.5 % (11.6-15.6)
[2023-07-21 12:20] LABS: POTASSIUM 3.8 mmol/L (3.5-5.1)
[2023-07-21 12:22] LABS: ALBUMIN 2.8 g/dl (3.4-5.0); BLOOD UREA NITROGEN 14.6 mg/dL (7-18); CALCIUM 9.7 mg/dL (8.5-10.1)
[2023-07-21 12:25] LABS: CREATININE 0.8 mg/dL (0.55-1.3)
[2023-07-21 12:27] LABS: BILIRUBIN,TOTAL 0.3 mg/dL (0.2-1); TOT PROT 6.9 g/dl (6.4-8.2)
[2023-07-21 12:32] LABS: ERYTHROCYTE SEDIMENTATION RATE 62 mm/hr (0-30)
[2023-07-21] MEDS ORDERED: AMOX TR/POT CLAV 875MG/125MG TABLETS (FP) PO ONE (12:50)
[2023-07-21] MEDS ORDERED: AMOX TR/POT CLAV 875MG/125MG TABLETS (FP) ONE (13:08)
[2023-07-21 13:17] VITALS: BP 183/77; PULSE 80; RESP 17; TEMP 98
== END 2023-07-21 13:10 | disposition home or self-care (01) ==
LOC: JER 09:50
PROC: 3E0233Z Introduction of Anti-inflammatory into Muscle, Percutaneous Approach (ICD-10-PCS; principal; 2023-07-21)
DX: M79.641 Pain in right hand (principal); M79.642 Pain in left hand; R22.33 Localized swelling, mass and lump, upper limb, bilateral
CPT/HCPCS: 36415; 73130-TC-LT-FY; 73130-TC-RT-FY; 80053; 84443; 85025; 85651; 86140; 99284-25

== ENCOUNTER 2023-08-06 15:30 | Observation (INO) | payer OTHER ==
[2023-08-06 17:30] LABS: BASO % 0.7 % (0-2.0); EOS % 1.5 % (0-4.5); HEMATOCRIT 34.6 % (32.4-45.2); HEMOGLOBIN 10.7 GM/dL (10.7-15.3); MCH 26.1 pg (25.7-33.7); MEAN PLT VOLUME 8.6 fl (7.5-11.1); MONO % 9.3 % (3.8-10.2); NEUT % 76.5 % (42.8-82.8); PLATELET COUNT 330 10^3/uL (134-434); RBC 4.12 M/mm3 (3.60-5.2); RDW 16.5 % (11.6-15.6); WHITE BLOOD COUNT 11.4 K/mm3 (4.0-10.0)
[2023-08-06 17:40] LABS: INR 1.1 (0.83-1.09); PROTHROMBIN TIME (PATIENT) 12.8 SEC (9.7-13.0)
[2023-08-06 17:49] LABS: POTASSIUM 5.4 mmol/L (3.5-5.1)
[2023-08-06 17:51] LABS: CALCIUM 9.7 mg/dL (8.5-10.1)
[2023-08-06 17:52] LABS: ALBUMIN 2.6 g/dl (3.4-5.0); BLOOD UREA NITROGEN 14.2 mg/dL (7-18)
[2023-08-06 17:57] LABS: BILIRUBIN,TOTAL 0.4 mg/dL (0.2-1); TOT PROT 6.9 g/dl (6.4-8.2)
[2023-08-06] MEDS ORDERED: ACETAMINOPHEN 1000 MG/100 ML BAG IVPB ONE (20:03)
[2023-08-06] MEDS ORDERED: ACETAMINOPHEN INJECTION 100 ML IVPB ONE (20:19)
[2023-08-06 21:10] LABS: POTASSIUM 3.8 mmol/L (3.5-5.1)
[2023-08-06 21:11] LABS: BLOOD UREA NITROGEN 12.2 mg/dL (7-18); CALCIUM 9.4 mg/dL (8.5-10.1)
[2023-08-06 21:15] LABS: CREATININE 0.8 mg/dL (0.55-1.3)
[2023-08-06 22:22] LABS: ERYTHROCYTE SEDIMENTATION RATE 61 mm/hr (0-30)
[2023-08-07] MEDS ORDERED: oxyCODONE HCL 5 MG TABLET PO ONE (02:14)
[2023-08-07 04:01] LABS: PH,URINE 6.5 (5.0-8.0); URINE APPEARANCE CLEAR; URINE BILIRUBIN NEGATIVE (NEGATIVE); URINE COLOR YELLOW; URINE GLUCOSE (UA) NEGATIVE (NEGATIVE); URINE KETONE NEGATIVE (NEGATIVE); URINE LEUK ESTERASE NEGATIVE (NEGATIVE); URINE NITRITE NEGATIVE (NEGATIVE); URINE PROTEIN NEGATIVE (NEGATIVE); URINE UROBILINOGEN 0.2 mg/dL (0.2-1.0)
[2023-08-07 05:46] VITALS: BMI 25.7
[2023-08-07] MEDS: sitaGLIPtin PHOSPHATE 50 MG TABLET PO SCH ×2 (06:58→16:55)
[2023-08-07] MEDS: GABAPENTIN 100 MG CAPSULE PO SCH (06:58)
[2023-08-07] MEDS ORDERED: metFORMIN HCL 500 MG TABLET (FP) PO SCH (07:00)
[2023-08-07] MEDS: INSULIN ASPART SLIDING SCALE (NOVOLOG) 1 VIAL SQ SCH ×4 (07:27→22:06)
[2023-08-07] MEDS ORDERED: PATIENT'S OWN MEDICATION (NON-FORMULARY) (Sitagliptin Phos/Metformin Hcl [Janumet 50-500 M PO SCH (10:00)
[2023-08-07 11:06] LABS: BASO % 0.7 % (0-2.0); EOS % 1.3 % (0-4.5); HEMATOCRIT 34.2 % (32.4-45.2); HEMOGLOBIN 10.6 GM/dL (10.7-15.3); LYMPH % 10.9 % (8-40); MCH 25.8 pg (25.7-33.7); MCHC 30.9 g/dl (32.0-36.0); MEAN CELL VOLUME 83.4 fl (80-96); MEAN PLT VOLUME 8.9 fl (7.5-11.1); MONO % 9.7 % (3.8-10.2); NEUT % 77.4 % (42.8-82.8); PLATELET COUNT 337 10^3/uL (134-434); RDW 16.3 % (11.6-15.6)
[2023-08-07] MEDS: CARVEDILOL 25 MG TABLET (FP) PO SCH ×2 (11:27→22:06)
[2023-08-07] MEDS: HYDROCHLOROTHIAZIDE 12.5 MG CAPSULE (FP) PO SCH (11:27)
[2023-08-07] MEDS: FERROUS SO4 325 MG TABLET (FP) PO SCH (11:27)
[2023-08-07 14:58] VITALS: RESP 18
[2023-08-07] MEDS: predniSONE 5 MG TABLET (UD) PO SCH (16:54)
[2023-08-07] MEDS ORDERED: GABAPENTIN 300 MG CAPSULE PO SCH (22:00)
[2023-08-07] MEDS ORDERED: ATORVASTATIN CA 80 MG TABLET (FP) PO SCH (22:00)
[2023-08-07 23:55] LABS: BLOOD UREA NITROGEN 8.7 mg/dL (7-18); CREATININE 0.8 mg/dL (0.55-1.3)
[2023-08-07 23:56] LABS: CALCIUM 9.7 mg/dL (8.5-10.1); POTASSIUM 4.4 mmol/L (3.5-5.1)
[2023-08-08] MEDS: INSULIN ASPART SLIDING SCALE (NOVOLOG) 1 VIAL SQ SCH ×2 (06:04→11:26)
[2023-08-08] MEDS: sitaGLIPtin PHOSPHATE 50 MG TABLET PO SCH (06:04)
[2023-08-08] MEDS: GABAPENTIN 100 MG CAPSULE PO SCH (06:04)
[2023-08-08 08:26] VITALS: BP 169/68; PULSE 79; TEMP 98.5
[2023-08-08] MEDS: FERROUS SO4 325 MG TABLET (FP) PO SCH (10:02)
[2023-08-08] MEDS: HYDROCHLOROTHIAZIDE 12.5 MG CAPSULE (FP) PO SCH (10:02)
[2023-08-08] MEDS: CARVEDILOL 25 MG TABLET (FP) PO SCH (10:02)
[2023-08-08] MEDS: predniSONE 5 MG TABLET (UD) PO SCH (10:02)
== END 2023-08-08 12:24 | disposition home or self-care (01) ==
LOC: JER 15:30 → JERBED 08-07 00:26 → J5S 08-07 05:33
PROVIDERS: ADMIT Internal Medicine; ATTEND Family Medicine
PROC: 3E033NZ Introduction of Analgesics, Hypnotics, Sedatives into Peripheral Vein, Percutaneous Approach (ICD-10-PCS; principal; 2023-08-07)
PROC: 3E013VG Introduction of Insulin into Subcutaneous Tissue, Percutaneous Approach (ICD-10-PCS; 2023-08-07)
DX: M79.89 Other specified soft tissue disorders (principal); M65.88 Other synovitis and tenosynovitis, other site; E11.9 Type 2 diabetes mellitus without complications; E78.5 Hyperlipidemia, unspecified; D64.9 Anemia, unspecified; I10 Essential (primary) hypertension; N17.9 Acute kidney failure, unspecified
CPT/HCPCS: 36415; 71260-TC; 74178-TC; 80048; 80053; 81003; 82105; 82378; 82962; 83880; 85025; 85610; 85651; 85730; 86140; 86300; 86301; 86304; 86850; 86900; 86901; 87086; 93005; 93010; 93970-TC; 96372; 96374; 99285-25; G0378; Q9967